=== PATIENT | female | born 1940 | race Caucasian/White ===

== ENCOUNTER → 2019-03-01 13:43 | Outpatient (CLI) | payer MEDICARE ==
[2010-11-01 08:36] VITALS: BMI 30.1
== END | disposition home or self-care (01) ==
LOC: D.HCCARDIO 02-16 11:00
PROVIDERS: ATTEND Internal Medicine Cardiovascular Disease
DX: I48.91 Unspecified atrial fibrillation (principal)

== ENCOUNTER → 2020-07-17 11:07 | Outpatient (CLI) | payer MEDICARE ==
[2010-11-01 08:36] VITALS: BMI 30.1
== END | disposition home or self-care (01) ==
LOC: D.HCCECHO 11:00
PROVIDERS: ATTEND Internal Medicine Cardiovascular Disease
DX: I34.0 Nonrheumatic mitral (valve) insufficiency (principal)